=== PATIENT | male | born 1965 | race Two or more races ===

== ENCOUNTER 2024-11-24 13:52 | Emergency (ER) | payer MEDICAID, SELFPAY ==
[2024-11-24 14:07] VITALS: BP 129/73; PULSE 70; RESP 18; TEMP 37; O2SAT 98
--- NOTE | 2024-11-24 14:25 | EDNOTE_ITS ---
Upper Respiratory Inf. RME/HPI General Chief Complaint: Flu Like Symptoms Stated Complaint: HEADACHE, FLU LIKE SYMPTOMS Time Seen by Provider: 11/24/24 14:05 Source: patient and family Arrival date/time: 11/24/24 13:52 59-year-old male presents to urgent care with complaint of green discharge from the left ureter with a clear discharge from the right nasal nare, this began 6 days ago. Patient also tells me that he has had a right ear that spontaneously bleeds. This is from an old injury while cleaning his ears with a cotton tip applicator puncturing the tympanic membrane. Mode of arrival: ambulatory Limitations: no limitations RME / HPI MD Complaint: fever, rhinorrhea, nasal congestion and sinus pain Related Data Previous Rx's ?Medication ?Instructions ?Recorded doxycycline monohydrate 100 mg 100 mg PO BID #20 tabs 11/24/24 tablet Allergies Allergy/AdvReac Type Severity Reaction Status Date / Time Penicillins Allergy Verified 11/24/24 13:53 Review of Systems Review of Systems Systems Reviewed: All systems reviewed, normal except as documented Constitutional Constitutional: Reports system reviewed and no additional complaints, except as documented, Reports as per HPI and Reports fever(s) ENT Ears, Nose, Mouth, and Throat: Reports system reviewed and no additional complaints, except as documented, Reports as per HPI, Reports facial pain, Reports nasal congestion, Reports nasal discharge and Reports sinus pressure Comments: Spontaneous right ear pain with bloody discharge Respiratory Respiratory: Reports system reviewed and no additional complaints, except as documented and Reports as per HPI Past Medical History Social History SMOKING STATUS: Never smoker Past Medical History Comments PMH COMMENT: Just denies significant past medical history ED Exam General Limitations: Present no limitations General appearance: Present alert and in no apparent distress Head Head exam: Present atraumatic Eye Eye exam: Present normal appearance, PERRL and EOMI ENT ENT exam: Present normal exam, normal oropharynx and TM's normal bilaterally Neck Neck exam: Present normal inspection and full ROM Chest Chest inspection: Present normal inspection and symmetric chest wall rise Respiratory Respiratory exam: Present normal lung sounds bilaterally Cardiovascular Cardiovascular exam: Present regular rate Abdominal Exam Abdominal exam: Present soft and normal bowel sounds Extremities Exam Extremities exam: Present normal inspection and full ROM Back Exam Back exam: Present normal inspection and full ROM Neurological Exam Neurological exam: Present alert, oriented X3 and CN II-XII intact Psychiatric Psychiatric exam: Present normal affect and normal mood Skin Skin exam: Present warm, dry, intact and normal color Course Quality Measures none (N/A) Orders Category Date Time Status CBC Stat Lab 11/24/24 15:03 Completed CMP [Comprehensive Metabolic Panel] Stat Lab 11/24/24 15:03 Completed Vital Signs Vital signs: Vital Signs Temperature 98.6 F 11/24/24 14:07 Pulse Rate 70 11/24/24 14:07 Respiratory Rate 18 11/24/24 14:07 Blood Pressure 129/73 11/24/24 14:07 Pulse Oximetry (%) 98 11/24/24 14:07 Oxygen Delivery Method Room Air 11/24/24 14:07 Pulse ox 98% room air Upper Respiratory Infection MDM Narrative MDM Narrative:: Presents with numerous complaints include sinus-like symptoms as well as discharge from the ears that occurred 6 days ago and then today. This was possibly due to a chronic issue he had with a punctured eardrum that occurred 1 year ago. Patient has been sick up to 6 days. A CBC and a CMP were drawn and compared. Patient will be discharged home in no apparent distress. Patient data External records reviewed:: [facility] previous records Clinical information provided by:: patient Social determinants that could affect healthcare access:: housing Patient has the following chronic illnesses:: N/A How is presenting disease/condition affected by chronic disease/condition?: caused by Evaluation data The following diagnostics were reviewed and interpreted by me:: lab results (CBC and CMP while within her normal limits) Lab and/or radiology exams considered but not ordered:: N/A Interpretation Summary: N/A Medications / Prescriptions Medications or Prescriptions considered but not ordered:: N/A Medication administrations:: N/A Consultations Consultation(s) initiated? (list below): No Diagnosis Upper Respiratory Differential Diagnosis: upper respiratory infection, otitis media, sinusitis, viral infection and pharyngitis Most likely diagnosis given after review of the tests above:: Sinusitis Admission Indicated Admission indicated?: not indicated Admission Request Was there a request for admission?: No Disposition Plan Disposition Plan: Discharge Discharge Attestation Discharge Attestation: The patient and all family members were given an opportunity to ask questions and understood the discharge instructions. Discharge instructions specifically effects, indications for sooner follow up or return to the emergency department, and the expected course of current diagnosis. Patient condition: Stable Discharge Plan Plan Patient Disposition: HOME (Self Care) Disposition Comment: Sinusitis Patient condition on transfer: Stable Prescriptions/Referrals Prescriptions/Med Rec: New doxycycline monohydrate 100 mg tablet 100 mg PO BID Qty: 20 0RF Referrals: No Primary/Family,Physician [Primary Care Provider] - In 1 week Problem List Clinical Impression: Sinusitis Impression comment: Sinusitis Patient/Caregiver Discharge Instructions Education Materials: ED Sinusitis (Antibiotic Treatment) Print Language: Marshallese Stand Alone Forms: [facility]al[facility] Award Info., Patient Portal Info Letter PA/CLIENT SERVICES ASSOCIATE Supervising Physician PA/CLIENT SERVICES ASSOCIATE Supervising Physician: Surekha
[2024-11-24 15:30] LABS: Basophils % (Auto) 0 % (0-2.5); Eosinophils # (Auto) 0.3 Thou/mm3 (0.0-0.5); Eosinophils % (Auto) 3 % (0-10); Hematocrit 42.7 % (41.0-53.0); Hemoglobin 15.3 g/dL (13.5-16.0); Immature Granulocytes % (Auto) 0 % (0-0); Immature Granulocytes Auto 0.02 Thou/mm3 (0.00-0.00); Lymphocytes # (Auto) 1.3 Thou/mm3 (1.0-4.8); Lymphocytes % (Auto) 14 % (10-50); Mean Corpuscular HGB Conc 35.8 g/dl (31.0-37.0); Mean Corpuscular Hemoglobin 32.1 pg (25.0-35.0); Mean Corpuscular Volume 90 fL (80-100); Monocytes # (Auto) 0.9 Thou/mm3 (0.0-0.8); Monocytes % (Auto) 10 % (0-12); Neutrophils # (Auto) 6.5 Thou/mm3 (1.8-7.7); Neutrophils % (Auto) 72 % (37-80); Nucleated Red Blood Cell % 0 /100 WBC (0); Platelet Count 259 Thou/mm3 (140-440); RDW Standard Deviation 41.2 fL (35.1-43.9); Red Blood Count 4.76 Miln/mm3 (4.50-5.90)
[2024-11-24 15:44] LABS: Alanine Aminotransferase 28 U/L (10-49); Albumin, Serum 4.1 gm/dL (3.5-5.0); Albumin/Globulin Ratio 1.5 (1.2-2.2); Alkaline Phosphatase 75 U/L (46-116); Anion Gap 6 (7-16); Aspartate Amino Transferase 17 U/L (0-34); BUN/Creatinine Ratio 12 Ratio (12-20); Bilirubin,Total 0.7 mg/dL (0.3-1.2); Blood Urea Nitrogen 11 mg/dL (9-23); Calcium 8.8 mg/dL (8.3-10.6); Calcium (Corrected) 8.8 mg/dL (8.5-10.1); Carbon Dioxide 25.9 mMol/L (20.0-31.0); Chloride 109 mMol/L (98-107); Creatinine (Component) 0.9 mg/dL (0.6-1.3); Globulin 2.8 gm/dL (2.3-3.5); Glucose 111 mg/dL (74-106); Osmolality,Calculated 281 (275-295); Potassium 4.2 mMol/L (3.4-5.1); Sodium 141 mMol/L (136-145); Total Protein 6.9 gm/dL (5.7-8.2); eGFR > 60 See Note
--- NOTE | 2024-11-24 19:17 | PC.NURSE ---
CALLED PATIENT IN LOBBY AND OUTSIDE WITH NO ANSWER RECEIVED.
== END 2024-11-24 19:16 | disposition left against medical advice (07) ==
PROVIDERS: Physician Assistant; Emergency Provider Emergency Medicine
DX: J32.9 Chronic sinusitis, unspecified (principal); Z53.29 Procedure and treatment not carried out because of patient's decision for other reasons
CPT/HCPCS: 36415; 80053; 85025; 99283

== ENCOUNTER → 2025-06-15 | Outpatient (CLI) | payer MEDICAID, SELFPAY ==
--- NOTE | 2025-06-15 | XR_ITS ---
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 FINDINGS: Normal heart size Lungs are clear. Osseous structures are demineralized 15 mm nodular density right upper lobe IMPRESSION: No active disease No radiographic findings of active tuberculosis Recommend AP lordotic chest follow-up to exclude 15 mm pulmonary nodule right upper lobe
== END | disposition home or self-care (01) ==
LOC: CDIM 11:54
DX: R91.8 Other nonspecific abnormal finding of lung field (principal)
CPT/HCPCS: 71046